=== PATIENT | male | born 1990 | race Caucasian/White ===

== ENCOUNTER 2020-08-22 12:33 | Emergency (ER) | payer OTHER ==
[~2020-08-22] VITALS: Ht 165.1 cm; Wt 94.3 kg
[2020-08-22] MEDS ORDERED: KETOROLAC TROMETHAMINE 60 MG/2 ML VIAL IM ONE (13:30)
[2020-08-22] MEDS ORDERED: HYDROCODONE/APAP 7.5MG-325MG 1 EA TAB PO ONE (13:30)
[2020-08-22 13:40] VITALS: BP 135/98
== END 2020-08-22 13:42 | disposition home or self-care (01) ==
LOC: ER 13:19
DX: M25.562 Pain in left knee (principal); N18.9 Chronic kidney disease, unspecified
CPT/HCPCS: 99283; J1885

== ENCOUNTER 2020-09-27 17:49 | Emergency (ER) | payer OTHER ==
[~2020-09-27] VITALS: Ht 165.1 cm; Wt 94.3 kg
[2020-09-27] MEDS ORDERED: HYDROCODON-ACE1 EAC9 PO (18:11)
[2020-09-27] MEDS ORDERED: HYDROCODONE/APAP 10MG-325MG TAB PO ONE (18:15)
[2020-09-27] MEDS ORDERED: KETOROLAC TROMETHAMINE 60 MG/2 ML VIAL IM ONE (18:15)
== END 2020-09-27 18:28 | disposition home or self-care (01) ==
LOC: ER 18:07
DX: M25.562 Pain in left knee (principal); M25.462 Effusion, left knee; N18.9 Chronic kidney disease, unspecified
CPT/HCPCS: 99282; J1885